=== PATIENT | female | born 1990 | race Caucasian/White ===

== ENCOUNTER 2017-05-07 21:14 | Emergency (ER) | payer OTHER ==
[2017-05-07 21:36] VITALS: BMI 17.6
[2017-05-07] MEDS ORDERED: Sodium Chloride 0.9% 1,000 ML IV ONE (21:51)
--- NOTE | 2017-05-07 21:58 | C.PDOC ---
History Of Present Illness 26 year old female presents to the ED for evaluation of a locked jaw which had sudden onset earlier today. Patient states she was eating when she was suddenly unable to close her mouth. Patient denies direct trauma/injury to affected area. Chief Complaint (Nursing): ENT Problem History Per: Patient History/Exam Limitations: None Onset/Duration Of Symptoms: Hrs, Sudden Onset Current Symptoms Are (Timing): Still Present Past Medical History Reviewed: Historical Data, Nursing Documentation, Vital Signs Vital Signs: Last Vital Signs Temp 98.2 F 05/07/17 23:17 Pulse 65 05/07/17 23:36 Resp 18 05/07/17 23:36 BP 135/94 H 05/07/17 23:36 Pulse Ox 100 05/07/17 23:36 - Medical History PMH: No Chronic Diseases Surgical History: No Surg Hx Family History: States: Unknown Family Hx - Social History Hx Alcohol Use: Yes Hx Substance Use: No - Immunization History Hx Tetanus Toxoid Vaccination: No Hx Influenza Vaccination: No Hx Pneumococcal Vaccination: No Review Of Systems Musculoskeletal: Positive for: Other (locked jaw) Physical Exam - Physical Exam Appears: Non-toxic, No Acute Distress Skin: Normal Color, Warm, Dry Head: No Tenderness, No Swelling, Other (inability to close mouth ) Eye(s): bilateral: Normal Inspection Oral Mucosa: Moist Neck: Supple Chest: Symmetrical, No Deformity, No Tenderness Cardiovascular: Rhythm Regular, No Murmur Respiratory: Normal Breath Sounds, No Rhonchi Extremity: Normal ROM, Capillary Refill (less than 2 seconds) Neurological/Psych: Oriented x3, Normal Speech, Normal Cognition Gait: Steady ED Course And Treatment O2 Sat by Pulse Oximetry: 96 Progress Note: Mandible XR ordered and reviewed. IV Fluids administered. Morphine IVP administered. Jaw was reduced successfully with no complications. Patient tolerated well and found instant relief. Disposition Counseled Patient/Family Regarding: Diagnosis - Disposition Referrals: [facility] [Outside] Disposition: HOME/ ROUTINE Disposition Time: 00:04 Condition: IMPROVED Prescriptions: Naproxen 375 mg PO TIDPC #20 tablet Instructions: Mandibular Dislocation (ED) Forms: [facility] (Persian) - POA Present On Arrival: None - Clinical Impression Clinical Impression: Dislocated jaw - Scribe Statement The provider has reviewed the documentation as recorded by the Scribe (Dinah Flores) Provider Attestation: All medical record entries made by the Scribe were at my direction and personally dictated by me. I have reviewed the chart and agree that the record accurately reflects my personal performance of the history, physical exam, medical decision making, and the department course for this patient. I have also personally directed, reviewed, and agree with the discharge instructions and disposition.
[2017-05-07] MEDS ORDERED: Midazolam 2 MG/2 ML VIAL ONE (22:31)
[2017-05-07] MEDS ORDERED: Midazolam 5 MG/5 ML VIAL IVP ONE ×2 (22:33→22:34)
[2017-05-07 23:18] VITALS: RESP 18; TEMP 98.2
[2017-05-08 00:21] VITALS: BP 121/72; PULSE 62; O2SAT 100
--- NOTE | 2017-05-08 08:22 | RAD ---
PROCEDURE: HISTORY: r/o mandibular fracture COMPARISON: TECHNIQUE: Five views FINDINGS: No fracture noted. Each mandibular condyle is anterior to each temporal eminence. Incidentally noted is the most posterior right mandibular molar obliquely angled. Extensive dental hardware noted. Left year metallic jewelry presumably pierced present IMPRESSION: Each mandibular condyle is anterior Marck translated -anteriorly subluxed relative to the chin temporal eminence. No fracture. Other findings as above
--- NOTE | 2017-05-08 08:29 | RAD ---
PROCEDURE: HISTORY: repeat COMPARISON: Mandibular views 05/07/2017 TECHNIQUE: Five views open and closed FINDINGS: No fracture noted. The left mandibular condyle in the closed position is reduced - projects posterior to the temporal eminence - on open mouth view, the left mandibular condyle minimally anteriorly translates. No further anterior translation closer to the temporal eminence's inferior apex is suggested. The left open position appears more " guarded" Evaluation of the right mandibular condyle relative to the temporal eminence is less clearly seen but likely produce as well with similar guarded findings in the open mouth projection. IMPRESSION: Bilateral mandibular condylar posterior reductions. In the guarded open mouth positions, no repeat anterior dislocation of the condyle relative to the temporal eminence suggested No fracture seen
--- NOTE | 2017-05-08 08:42 | RAD ---
PROCEDURE: HISTORY: LOCKED JAW COMPARISON: TECHNIQUE: Three-view FINDINGS: No fracture noted. Each mandibular condyle is anterior to each temporal eminence. Incidentally noted is the obliquely angled posterior right mandibular molar. Extensive dental hardware noted. Left ear metallic jewelry present Each mandibular condyle is anteriorly dislocated relative to each temporal eminence. No fracture. Other findings as above IMPRESSION: Each mandibular condyle is - anteriorly dislocated relative to each temporal eminence. No fracture. Other findings as above
== END 2017-05-08 00:20 | disposition home or self-care (01) ==
LOC: C.ER 21:14
DX: S03.03XA Dislocation of jaw, bilateral, initial encounter (principal); X58.XXXA Exposure to other specified factors, initial encounter
CPT/HCPCS: 21480; 70110; 70330; 96361; 96374; 96375; 99285; J2250; J2270; J7040